=== PATIENT | female | born 1980 | race Caucasian/White ===

== ENCOUNTER 2021-08-30 15:19 | Outpatient (CLI) | payer OTHER, SELFPAY ==
--- NOTE | 2021-08-30 15:33 | ECG_ITS ---
Measurements Intervals [place] Rate: 80 P: 15 VA: 184 QRS: -15 QRSD: 101 T: 25 QT: 357 QTc: 414 Interpretive Statements SINUS RHYTHM LOW QRS VOLTAGE IN PRECORDIAL LEADS BORDERLINE R WAVE PROGRESSION, ANTERIOR LEADS BASELINE ARTIFACT- I, II, III, AVR, AVF BORDERLINE ECG Electronically Signed On 08-30-2021 16:06:53 CDT by Rafael Magallon D.O.
[2021-08-30 16:03] LABS: Hematocrit 42.2 % (37.0-47.0); Hemoglobin 14.2 g/dL (12.0-15.0); Mean Corpuscular HGB Conc 33.6 g/dl (32-36); Mean Corpuscular Hemoglobin 29.7 pg (26-34); Mean Corpuscular Volume 88.3 fl (80-100); Mean Platelet Volume 10.4 fl (7.4-10.4); Platelet Count Result 325 k/mm3 (150-375); Red Blood Count 4.78 M/mm3 (4.2-5.4); Red Cell Distribution Width 12.9 % (11.5-14.5); White Blood Count 8.5 K/mm3 (4.5-10.0)
[2021-08-30 16:14] LABS: Anion Gap 5 mmol/L (8-16); Blood Urea Nitrogen 10 mg/dL (7-17); Calcium 9.2 mg/dL (8.4-10.2); Carbon Dioxide 30 mmol/L (22-30); Chloride 99 mmol/L (98-107); Estimated Glomerular Filt Rate > 60; Glucose 203 mg/dL (65-110); Potassium 4.1 mmol/L (3.4-5.0); Sodium 134 mmol/L (137-145)
[2021-08-30 16:21] LABS: Prothrombin Time 13.2 Seconds (11.1-14.7)
[2021-08-30 16:22] LABS: Partial Thromboplastin Time 26.3 SECONDS (22.3-36.8)
== END 2021-08-30 15:20 | disposition home or self-care (01) ==
LOC: ANHSURGERY 15:23
PROVIDERS: Anesthesiology; PCP Family Medicine; Visit Provider Obstetrics & Gynecology
DX: Z01.818 Encounter for other preprocedural examination (principal); D64.9 Anemia, unspecified; D50.9 Iron deficiency anemia, unspecified; I10 Essential (primary) hypertension; E11.9 Type 2 diabetes mellitus without complications
CPT/HCPCS: 36415; 80048; 85027; 85610; 85730; 93005

== ENCOUNTER 2021-09-02 01:27 | Day surgery (SDC) | payer OTHER, SELFPAY ==
[2021-08-29 15:10] VITALS: BMI 50.2
--- NOTE | 2021-08-29 15:12 | PC.NURSE ---
Report to the Outpatient Waiting Room, entrance under the green pavilion located off [facility], at time _1100_ on date _09/02/21_. OR Time: _1300_. - You and your visitor will be asked a series of questions to screen for COVID 19 for your protection. - Only one visitor is allowed at this time. - The patient visitor is requested to leave or wait in car when not with patient. - A mask is required within the hospital. Patients may have clear liquids (water, carbonated beverages, clear teas, apple juice) until 3 hours prior to surgery with a maximum of 20 ounces. - No food from midnight until time of surgery - Infants may have breast milk until 4 hours before surgery, formula 6 hours prior to surgery. - Children will be allowed to drink immediately following surgery. If applicable, please bring a bottle or sippy cup to assist with drinking. Juice, water, soda, and popsicles are readily available. For infants on formula, please bring formula the day of surgery. Pacifiers are allowed. Take the following medications with a SIP of water the morning of surgery: Bupropion, Effexor, Acebutolol __ Medications to discontinue per physician __Iron and mulitvitamin on 08/30/21__ Date to take last dose Please no make-up, nail tamazight, hairspray, perfume, deodorant, or body powder the day of surgery. No jewelry (including any body piercings) or valuables the day of surgery, leave them at home. Please take a shower or bath the night before, or the morning of, surgery with an antibacterial soap. Wear comfortable, loose fitting clothing. Children are encouraged to wear pajamas. - Jewelry must be removed prior to entering the operating room. Rings and piercings that are not removed may be cut off. - The hospital will not accept responsibility for valuables. - Please leave all valuables, including medications, at home the day of surgery. If you are going home after surgery, a licensed commercial collections driver must drive you home. - NO public transportation without another adult. - We recommend that an adult stay with you for 24 hours following discharge. - We also recommend that you do not drive, make important decision, drink alcoholic beverages, or take any drugs that were not prescribed by your health care provider for at least 24 hours after your discharge time. For Pediatric surgeries, we recommend two adults accompany the child home (only one inside the building at this time). Follow any additional instructions given to you from your surgeon. If you or anyone in your household have experienced Covid symptoms in the past week, please notify your surgeon or the nurse liaison at the phone number below for possible testing. Telephone instructions given to _patient__and asked if any additional questions and then verbalized understanding. Patient advised to call surgeon office or pre surgery nurse liaison [phone] if any additional questions.
--- NOTE | 2021-09-01 15:57 | WPDANESEPPF ---
Anes - Initial Pre Proc Eval Procedure: Operation Date: 09/02/21 14:00 Proposed Procedures p Hysteroscopy, Dilation and Curettage, Marybeth Endometrial Ablation, Bilateral Laparoscopic Salpingectomy - Karl De La Fuente MD Date/Time: 09/01/21 15:57 Surgeon: Karl De La Fuente MD Pre Op Diagnosis: Menometrorrhagia. Desire Sterilization Patient Data Age: 41 Gender: F Height: 1.78 m Weight: 158.76 kg Allergies Allergy/AdvReac Type Severity Reaction Status Date / Time No Known Allergies Allergy Mild Verified 09/02/21 12:13 Home Medications Medication Instructions Recorded Confirmed Type alprazolam 1 mg tablet (Xanax) 1 mg PO HS 01/08/19 08/29/21 History bupropion HCl 300 mg 24 hr tablet, 300 mg PO QAM 01/08/19 08/29/21 History extended release (Wellbutrin XL) venlafaxine 150 mg 150 mg PO QAM 01/08/19 08/29/21 History capsule,extended release 24 hr (Effexor XR) acebutolol 400 mg capsule 400 mg PO BID #180 caps 01/04/21 08/29/21 Rx cetirizine 10 mg capsule (Zyrtec) 10 mg PO DAILY PRN Allergy Symptoms 05/06/21 08/29/21 History dulaglutide 1.5 mg/0.5 mL 1.5 mg (0.5 mL) subcut WEEKLY #6 mL 05/06/21 08/29/21 Rx subcutaneous pen injector (Trulicity) multivitamin 1 tablet PO DAILY 05/06/21 09/02/21 History ferrous sulfate 325 mg (65 mg 325 mg PO ONCE #90 tabs 07/19/21 08/29/21 Rx iron) tablet sitagliptin 50 mg-metformin 1,000 1 tablet PO BID #180 tabs 07/19/21 08/29/21 Rx mg tablet (Janumet) oxycodone-acetaminophen 5 mg-325 1 tablet PO Q6H PRN pain #20 tabs 09/02/21 Rx mg tablet (Percocet) Patient hx anesthesia problems: none Family hx anesthesia problems: none Results Review: All pre-operative results and documents have been reviewed as part of the pre-operative evaluation. [facility] Past Medical History Medical History Anemia Anxiety BMI 50.0-59.9, adult Depression Diabetes type 2, controlled Hypertension Iron deficiency anemia Kidney stones 2018 DANGELO (nonalcoholic steatohepatitis) LFT's were slightly elevated 18 years ago Surgical History Surgical History History of 02/26/05 primary c/s--arrest of dilation History of hysteroscopy 09/21/2016 hscope d&c/polypectomy--dysmenorrhea, endometrial polyp--disordered proliferative endometrium History of renal stent 09/26/18 Hx of lithotripsy 09/19/2018 10/16/18 Family History Family History Father Hypertension A-fib Grandparent Hypertension Cerebrovascular accident Mother Family history of diabetes mellitus in first degree relative Diabetes mellitus Social History Social History Smoking status: Never smoker Second hand tobacco smoke exposure: No Alcohol intake: never Substance use: never Substance use type: does not use Additional living arrangements comments: 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 Gender identity (if verbalized by the patient): Female Sexual Orientation (if Verbalized by the Patient): Straight or Heterosexual Spiritual care concerns: No Anes - Eval Final PreProcedure Day of Procedure 09/01/21 15:57 Patient weight: super morbidly obese Heart: regular rate and rhythm Lungs: clear to auscultation Airway: Mallampati scale class II Neurological: alert and oriented Last oral intake: >/= 8 hours ASA classification: III Emergent: no Anesthetic plan: proceed Anesthesia type and monitoring: general ETT and standard monitoring Results Review: All pre-operative results and documents have been reviewed as part of the pre-operative evaluation. Informed Consent: The patient's anesthetic plan and its attendant risks and benefits were discussed with the patient/family/POA. Questions were solicited and answers provid
[2021-09-02] VITALS (9 sets, daily range): BP systolic 135–163; BP diastolic 79–98; PULSE 77–95; RESP 12–20; TEMP 35.7–36.3; O2SAT 96–100
--- NOTE | 2021-09-02 10:44 | PM.IMHP ---
H&P: HPI History of Present Illness Date/Time: 09/02/21 10:44 41-year-old female presents with complaints of menstrual cycle lasts 7-10 days clotting and cramping to the point of keeping her from doing her normal daily activities including work. Also bleeds through tampons and pads upon occasion. She takes monthly withdrawal of Provera to have her menstrual cycle as she does not have them without it. Also is interested in permanent contraception. We had discussed this in the form of bilateral salpingectomy, again permanent and have discussed the failure rate risk of ectopic and regret which she understands and consents. Chief Complaint: 1. Menometrorrhagia 2. Undesired fertility Review of Systems Review of Systems: All systems reviewed & are unremarkable except as noted in HPI and below PMFSH Past Medical History Medical History Anemia Anxiety BMI 50.0-59.9, adult Depression Diabetes type 2, controlled Hypertension Iron deficiency anemia Kidney stones 2018 DANGELO (nonalcoholic steatohepatitis) LFT's were slightly elevated 18 years ago Surgical History Surgical History History of 02/26/05 primary c/s--arrest of dilation History of hysteroscopy 09/21/2016 hscope d&c/polypectomy--dysmenorrhea, endometrial polyp--disordered proliferative endometrium History of renal stent 09/26/18 Hx of lithotripsy 09/19/2018 10/16/18 Family History Family History Father Hypertension A-fib Grandparent Hypertension Cerebrovascular accident Mother Family history of diabetes mellitus in first degree relative Diabetes mellitus Social History Social History Smoking status: Never smoker Second hand tobacco smoke exposure: No Alcohol intake: never Substance use: never Substance use type: does not use Living arrangements: with family Additional living arrangements comments: 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 Gender identity (if verbalized by the patient): Female Sexual Orientation (if Verbalized by the Patient): Straight or Heterosexual Spiritual care concerns: No Meds Home Medications and Allergies Home Medications Medication Instructions Recorded Confirmed Type alprazolam 1 mg tablet (Xanax) 1 mg PO HS 01/08/19 08/29/21 History bupropion HCl 300 mg 24 hr tablet, 300 mg PO QAM 01/08/19 08/29/21 History extended release (Wellbutrin XL) venlafaxine 150 mg 150 mg PO QAM 01/08/19 08/29/21 History capsule,extended release 24 hr (Effexor XR) acebutolol 400 mg capsule 400 mg PO BID #180 caps 01/04/21 08/29/21 Rx cetirizine 10 mg capsule (Zyrtec) 10 mg PO DAILY PRN Allergy Symptoms 05/06/21 08/29/21 History dulaglutide 1.5 mg/0.5 mL 1.5 mg (0.5 mL) subcut WEEKLY #6 mL 05/06/21 08/29/21 Rx subcutaneous pen injector (Trulicity) multivitamin 1 tablet PO DAILY 05/06/21 08/29/21 History ferrous sulfate 325 mg (65 mg 325 mg PO ONCE #90 tabs 07/19/21 08/29/21 Rx iron) tablet sitagliptin 50 mg-metformin 1,000 1 tablet PO BID #180 tabs 07/19/21 08/29/21 Rx mg tablet (Janumet) Allergies Allergy/AdvReac Type Severity Reaction Status Date / Time No Known Allergies Allergy Mild Verified 08/29/21 14:52 Exam Const: General: cooperative, healthy appearing and comfortable Resp: Effort & Inspection: normal respiratory effort Auscultation: clear to auscultation bilaterally Cardio: Rate: regular rate Rhythm: regular rhythm GI: Inspection: normal to inspection and obesity : External Female Exam: normal external appearance Speculum Exam - Vagina: normal appearance of the vagina Speculum Exam - Cervix: normal appearance of the cervix Bimanual exam- vagina & uterus: normal bimanual exam Bimanual Exam- Adnexa,
[2021-09-02] MEDS: ACETAMINOPHEN 500 MG TABLET 1000 MG PO (12:41)
[2021-09-02] MEDS: KETOROLAC 15 MG/ML VIAL (*BKC) IV PUSH (13:12)
[2021-09-02] MEDS: LACTATED RINGERS 1,000 ML 30 ML IV CONT (13:12)
[2021-09-02 13:16] LABS: Glucose Point of Care 133 mg/dl (65-105)
--- NOTE | 2021-09-02 13:26 | WPDANESEPPF ---
Anes - Initial Pre Proc Eval Procedure: Operation Date: 09/02/21 14:00 Proposed Procedures p Hysteroscopy, Dilation and Curettage, Marybeth Endometrial Ablation, Bilateral Laparoscopic Salpingectomy - Karl De La Fuente MD Date/Time: 09/02/21 13:26 Surgeon: Karl De La Fuente MD Pre Op Diagnosis: Menometrorrhagia. Desire Sterilization Patient Data Age: 41 Gender: F Height: 1.78 m Weight: 157 kg Last Vital Signs Temp 96.2 F L 09/02/21 12:17 Pulse 86 09/02/21 12:17 Resp 20 09/02/21 12:17 BP 135/80 09/02/21 12:17 Pulse Ox 97 09/02/21 12:17 O2 Del Method Room Air 09/02/21 12:17 Allergies Allergy/AdvReac Type Severity Reaction Status Date / Time No Known Allergies Allergy Mild Verified 09/02/21 12:13 Home Medications Medication Instructions Recorded Confirmed Type alprazolam 1 mg tablet (Xanax) 1 mg PO HS 01/08/19 08/29/21 History bupropion HCl 300 mg 24 hr tablet, 300 mg PO QAM 01/08/19 08/29/21 History extended release (Wellbutrin XL) venlafaxine 150 mg 150 mg PO QAM 01/08/19 08/29/21 History capsule,extended release 24 hr (Effexor XR) acebutolol 400 mg capsule 400 mg PO BID #180 caps 01/04/21 08/29/21 Rx cetirizine 10 mg capsule (Zyrtec) 10 mg PO DAILY PRN Allergy Symptoms 05/06/21 08/29/21 History dulaglutide 1.5 mg/0.5 mL 1.5 mg (0.5 mL) subcut WEEKLY #6 mL 05/06/21 08/29/21 Rx subcutaneous pen injector (Trulicity) multivitamin 1 tablet PO DAILY 05/06/21 09/02/21 History ferrous sulfate 325 mg (65 mg 325 mg PO ONCE #90 tabs 07/19/21 08/29/21 Rx iron) tablet sitagliptin 50 mg-metformin 1,000 1 tablet PO BID #180 tabs 07/19/21 08/29/21 Rx mg tablet (Janumet) Laboratory Tests 09/02/21 13:14 POC Capillary Glucose 133 mg/dl H mg/dl (65-105) Patient hx anesthesia problems: none Family hx anesthesia problems: none Results Review: All pre-operative results and documents have been reviewed as part of the pre-operative evaluation. [facility] Past Medical History Medical History Anemia Anxiety BMI 50.0-59.9, adult Depression Diabetes type 2, controlled Hypertension Iron deficiency anemia Kidney stones 2018 DANGELO (nonalcoholic steatohepatitis) LFT's were slightly elevated 18 years ago Surgical History Surgical History History of 02/26/05 primary c/s--arrest of dilation History of hysteroscopy 09/21/2016 hscope d&c/polypectomy--dysmenorrhea, endometrial polyp--disordered proliferative endometrium History of renal stent 09/26/18 Hx of lithotripsy 09/19/2018 10/16/18 Family History Family History Father Hypertension A-fib Grandparent Hypertension Cerebrovascular accident Mother Family history of diabetes mellitus in first degree relative Diabetes mellitus Social History Social History Smoking status: Never smoker Second hand tobacco smoke exposure: No Alcohol intake: never Substance use: never Substance use type: does not use Living arrangements: with family Additional living arrangements comments: 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
--- NOTE | 2021-09-02 13:46 | WPDHPUPDATE1 ---
History and Physical Update Update Date/Time: 09/02/21 13:46 History and Physical has been reviewed, including an updated exam of the patient. There are NO changes in the patient's condition. Risks, benefits, and alternatives have been discussed and questions answered. Patient agrees to proceed with procedure.
[2021-09-02] MEDS: ceFAZolin 2 GM/D5W 50 ML 2 GM/50 ML BAG IVPB (13:56)
--- NOTE | 2021-09-02 15:09 | W.PM.PROC2 ---
Procedure Note - Detailed Date of Procedure 09/02/21 Pre-op Diagnosis Menometrorrhagia. Desire Sterilization Post-op Diagnosis Same (Plus adhesions) Procedure Performed 1. Laparoscopy with bilateral salpingectomy 2. Exam under anaesthesia 3. Hysteroscopy unable to be performed Surgeon Karl De La Fuente MD Anesthesia General Findings 1. Hysteroscopic exam. With attempt to reach cervix unable to do so. 2. Laparoscopic exam. Bilateral ovaries and uterus densely adhered to the anterior abdominal wall. Fallopian tubes were able to be identified. No other significant abnormalities or adhesions were noted other than the uterus which was as mentioned above if dense adhered to the anterior abdominal wall as well as in an elevated position as well. This likely accounts for inability to reach cervix vaginally. Description of Procedure Patient prepped in usual manner for this procedure. Periumbilical and lower quadrant incisions were placed under direct visualization. Laparoscopic portion procedure was performed with findings as above adhesions were taken down of the omentum and ovaries. The fallopian tubes were identified bilaterally and removed. Decision at this point was made not to remove the adhesions of the uterus to the anterior abdominal wall as it was felt there was a strong possibility of needing more involved procedure (possible hysterectomy and or bowel procedure) than had been discussed and adequately consented and prepared for. Attention was then placed to the cervix and due to aforementioned adhesions inability to safely grasp the cervix and dilate. Also due to the adhesions was felt the ablation instrument likely would not have been able to be placed therefore at this point the hysteroscopic portion of the procedure was aborted. Estimated Blood Loss 50 Drains No Packing No Pathology Yes Complications No immediate complications Condition Stable Disposition PACU [facility] Billing Surgery - Charge Forward: Surgery Billing
[2021-09-02 16:01] LABS: Glucose Point of Care 143 mg/dl (65-105)
[2021-09-02] MEDS: oxyCODONE HCL (*CRX) 5 MG TAB IR PO (16:47)
== END 2021-09-02 17:02 | disposition home or self-care (01) ==
PROVIDERS: PCP Family Medicine; Visit Provider Obstetrics & Gynecology
PROC: 0UDB8ZZ Extraction of Endometrium, Via Natural or Artificial Opening Endoscopic (ICD-10-PCS; CPT 58558; principal; 2021-09-02 14:00)
DX: N92.1 Excessive and frequent menstruation with irregular cycle (principal); Z30.2 Encounter for sterilization; N83.8 Other noninflammatory disorders of ovary, fallopian tube and broad ligament; E11.9 Type 2 diabetes mellitus without complications; I10 Essential (primary) hypertension
CPT/HCPCS: 58661; 36415; 80048; 82948; 85027; 85610; 85730; 88302; 93005; A9270; J0330; J0690; J1100; J1885; J2250; J2405; J2704; J2710; J3010; J7120

== ENCOUNTER 2023-05-04 11:28 | Outpatient (CLI) | payer OTHER, SELFPAY ==
--- NOTE | ~2023-05-04 | MM_ITS ---
EXAMINATION: MM screening [facility] w jonatan HISTORY: Screening mammogram TECHNIQUE: Craniocaudal and mediolateral oblique 3-D tomosynthesis images were obtained and synthetic 2-D images were generated. CAD analysis was submitted and interpreted. COMPARISON: No prior mammogram is available for comparison at this institution. BREAST PARENCHYMAL COMPOSITION: The breasts are almost entirely fatty. FINDINGS: There is no evidence of suspicious mass, calcification, or architectural distortion to sugg est malignancy in either breast. There has been no suspicious interval change. IMPRESSION: 1. No mammographic evidence of malignancy. 2. Recommend routine screening mammography in one year. BI-RADS Category 1: Negative Reviewed, dictated and finalized at location A.
== END 2023-05-04 11:29 ==
LOC: MICIMG 11:29
PROVIDERS: PCP Obstetrics & Gynecology; Visit Provider Obstetrics & Gynecology
DX: Z12.31 Encounter for screening mammogram for malignant neoplasm of breast (principal)
CPT/HCPCS: 77063; 77067

== ENCOUNTER 2024-08-08 12:46 | Outpatient (CLI) | payer OTHER, SELFPAY ==
--- NOTE | ~2024-08-08 | MM_ITS ---
EXAMINATION: MM screening contra [facility] BI w jonatan HISTORY: Screening TECHNIQUE: Craniocaudal and mediolateral oblique 3-D tomosynthesis images were obtained and synthetic 2-D images were generated. CAD analysis was submitted and interpreted. COMPARISON: Comparison to multiple prior studies sequentially, with oldest reviewed study dated 05/03. BREAST PARENCHYMAL COMPOSITION: Not Dense: The breasts are almost entirely fatty. FINDINGS: There is no evidence of suspicious mass, calcification, or architectural distortion to sugg est malignancy in either breast. There has been no suspicious interval change. IMPRESSION: 1. No mammographic evidence of malignancy. 2. Recommend routine screening mammography in one year. BI-RADS Category 1: Negative Reviewed, dictated and finalized at location A.
== END 2024-08-08 12:47 | disposition home or self-care (01) ==
LOC: MICIMG 12:47
PROVIDERS: PCP Obstetrics & Gynecology; Visit Provider Obstetrics & Gynecology
DX: Z12.31 Encounter for screening mammogram for malignant neoplasm of breast (principal)
CPT/HCPCS: 77063; 77067